=== PATIENT | female | born 1990 | race Caucasian/White ===

== ENCOUNTER 2017-04-19 19:54 | Emergency (ER) | payer MEDICAID, OTHER ==
[2017-04-19 19:55] VITALS: BMI 28.4
[2017-04-19 20:03] VITALS: BP 132/58; PULSE 76; RESP 16; TEMP 98; O2SAT 99
--- NOTE | 2017-04-19 20:46 | ED PDOC ---
HPI: Female Pain Time Seen by Provider: 04/19/17 20:18 Chief Complaint (Nursing): Abdominal Pain Chief Complaint (Provider): suprapubic pain History Per: Patient History/Exam Limitations: no limitations Onset/Duration Of Symptoms: Days (1) Current Symptoms Are (Timing): Still Present Severity: None Quality Of Discomfort: Cramping Associated Symptoms: denies: Fever, Chills, Nausea, Vomiting, Diarrhea, Loss Of Appetite, Back Pain, Chest Pain, Constipation, Urinary Symptoms Alleviating Factors: None Additional Complaint(s): 26yo F in Ed for eval of suprapubic pain x 1 day with urinary freq, urgency and trickling. no back pain no fever no chills no nausea or vomiting. Has an IUD did not have menstural for month march Abnormal Vaginal Bleeding: No Past Medical History Reviewed: Historical Data, Nursing Documentation, Vital Signs Vital Signs: Last Vital Signs Temp 98 F 04/19/17 19:59 Pulse 76 04/19/17 19:59 Resp 16 04/19/17 19:59 BP 132/58 L 04/19/17 19:59 Pulse Ox 99 04/19/17 19:59 - Medical History PMH: No Chronic Diseases - Family History Family History: States: No Known Family Hx - Home Medications Home Medications: Ambulatory Orders Medication Instructions Recorded Ibuprofen [Motrin] 1 tab PO Q8 PRN #21 tab 09/22/14 - Allergies Allergies/Adverse Reactions: Allergies Allergy/AdvReac Type Severity Reaction Status Date / Time No Known Allergies Allergy Verified 12/01/13 17:34 Review of Systems ROS Statement: Except As Marked, All Systems Reviewed And Found Negative Constitutional: Negative for: Fever, Chills Genitourinary Female: Positive for: Dysuria Physical Exam - Reviewed Nursing Documentation Reviewed: Yes Vital Signs Reviewed: Yes - Physical Exam Appears: Positive for: Well, Non-toxic, No Acute Distress Skin: Positive for: Normal Color, Warm, DRY Cardiovascular/Chest: Positive for: Regular Rate, Rhythm Respiratory: Positive for: CNT, Normal Breath Sounds Neurologic/Psych: Positive for: Alert, Oriented - Laboratory Results Urine POC: Positive Urine dip results: Positive for: Leukocyte Esterase, Blood - ECG O2 Sat by Pulse Oximetry: 99 - Progress ED Course And Treament: pt well appearing. pt will be d.c with macrobid and vit. advised to have pmd f.u with obgyn Medical Decision Making Medical Decision Making: pt well appearing. Disposition - Clinical Impression Clinical Impression: , UTI (urinary tract infection) - Patient ED Disposition Is Patient to be Admitted: No Counseled Patient/Family Regarding: Studies Performed, Diagnosis, Need For Followup, Rx Given - Disposition [facility] Disposition: Routine/Home Disposition Time: 20:54 Condition: STABLE Instructions: (ED), Morning Sickness (ED), Urinary Tract Infection in (ED) Print Language: IRAQI
== END 2017-04-19 21:10 | disposition home or self-care (01) ==
LOC: H.ER 19:54
DX: O23.40 Unspecified infection of urinary tract in pregnancy, unspecified trimester (principal); O21.9 Vomiting of pregnancy, unspecified